=== PATIENT | male | born 1970 | race Caucasian/White ===

== ENCOUNTER 2017-01-01 10:56 | Emergency (ER) | payer MEDICAID ==
[~2017-01-01] VITALS: Ht 167.6 cm; Wt 85.0 kg
[2017-01-01 11:02] VITALS: Ht 167.6 cm; Wt 85.0 kg
[2017-01-01] MEDS ORDERED: IBUPROFEN 600 MG TAB PO ONE (11:30)
--- NOTE | 2017-01-01 12:10 | RADRPT ---
PROCEDURE: XR Right Shoulder CLINICAL INDICATION: Right shoulder pain for 6 months TECHNIQUE: AP internal and external rotation views were submitted along with a Y-view. COMPARISON: None FINDINGS: Osseous structures: appear well mineralized and intact with no fracture or destructive process iden tified. Joint spaces: The glenohumeral joint appears unremarkable. Mild degenerative changes seen about the right AC joint. Soft tissues: A calcification is seen off the right humeral head compatible with calcific tendonitis . IMPRESSION: 1. Calcific tendonitis seen about the right humeral head. 2. Mild degenerative change seen about the right AC joint. Physician Kimberlyn Date Time Electronically viewed and signed by Physician Kimberlyn on 01/01/2017 12:10 /
--- NOTE | 2017-01-01 12:12 | RADRPT ---
PROCEDURE: XR lumbosacral Spine Series CLINICAL INDICATION: Pain TECHNIQUE: 3 standard radiographs were taken of the lumbosacral spine. COMPARISON: None FINDINGS: Alignment: There is mild straightening of the normal lordotic curvature to the lumbar spine without subluxation. Disk spaces: the disk spaces are adequately maintained. Osseous structures: appear intact with no fracture or osseous destruction identified. there is no si gnificant spondylosis. Joint spaces: the facet joints joints appear unremarkable. The sacroiliac joints appear normal. Soft tissues: appear unremarkable. IMPRESSION: 1. Mild straightening of the normal lordotic curvature to the lumbar spine without subluxation. 2. Otherwise, unremarkable lumbosacral spine series. Physician Kimberlyn Date Time Electronically viewed and signed by Physician Kimberlyn on 01/01/2017 12:11 /
[2017-01-01] MEDS ORDERED: NAPR-260 PO (12:44)
--- NOTE | 2017-01-01 12:51 | ERD ---
ER Documentation Chief Complaint Date/Time DATE: 01/01/17 TIME: 12:49 Chief Complaint back pain , rt shoulder pain x 6 months on and off HPI 46-year-old male comes to emergency department with right-sided shoulder pain as well as diffuse lumbar back pain for 6 months on and off. Patient states that he notices the pain mostly in the low back and it is nonradiating and it is worse when he flexes down to tie his shoes or bend forward. It is an achy and sharp. He denies saddle anesthesia loss of bowel bladder function. Patient also complains of right anterior shoulder pain, it is sharp and worse when he moves his arm outward, there is no history of trauma or fevers or chills. ROS All systems reviewed and are negative except as per history of present illness. Medications Home Meds Active Scripts Naproxen* (Naprosyn*) 500 Mg Tablet, 500 MG PO BID Y for PAIN AND/OR INFLAMMATION, #30 TAB Prov:GEORGE GAUTHIER PA-C 01/01/17 Allergies Allergies: Coded Allergies: No Known Allergy (Unverified , 01/01/17) PMhx/Soc Medical and Surgical Hx: pt denies Medical Hx, pt denies Surgical Hx Hx Alcohol Use: No Hx Substance Use: No Hx Tobacco Use: No Smoking Status: Never smoker Physical Exam Vitals Vital Signs Date Time Temp Pulse Resp B/P Pulse Ox O2 Delivery O2 Flow Rate FiO2 01/01/17 11:02 98.0 74 16 128/75 99 Physical Exam = General: Well-developed, well-nourished. The patient appears in no acute distress. HEENT: Head is normocephalic, atraumatic. No scleral icterus. Neck: Supple. Nontender. Lungs: Clear to auscultation. Normal air movement. Heart: Regular rate and rhythm. S1 and S2 are normal. No murmurs, gallops, or rubs. Abdomen: Nondistended. Extremities: Right shoulder has full range of motion with abduction, adduction, no bony deformities, there is mild tenderness over the AC joint. There is no tenting of the skin, no erythema or warmth. There is no swelling to the right upper extremity. Back: There is diffuse paraspinal tenderness in the lumbar spine, no no midline pain, no rashes. He is able to flex and touch his toes. Neurologic: Alert and oriented 3. No focal deficits. Normal speech and gait. Skin: Normal turgor. No rash or lesions. Results 24 hrs Current Medications Medications (Trade) Dose Ordered Sig/Tomy Route PRN Reason Start Time Stop Time Status Last Admin Dose Admin Ibuprofen (Motrin) 600 mg ONCE ONCE PO 01/01/17 11:30 01/01/17 11:31 DC 01/01/17 12:25 PROCEDURE: XR lumbosacral Spine Series CLINICAL INDICATION: Pain TECHNIQUE: 3 standard radiographs were taken of the lumbosacral spine. COMPARISON: None FINDINGS: Alignment: There is mild straightening of the normal lordotic curvature to the lumbar spine without subluxation. Disk spaces: the disk spaces are adequately maintained. Osseous structures: appear intact with no fracture or osseous destruction identified. there is no significant spondylosis. Joint spaces: the facet joints joints appear unremarkable. The sacroiliac joints appear normal. Soft tissues: appear unremarkable. IMPRESSION: 1. Mild straightening of the normal lordotic curvature to the lumbar spine without subluxation. 2. Otherwise, unremarkable lumbosacral spine series. Physician Kimberlyn Date Time Electronically viewed and signed by Physician Kimberlyn on 01/01/2017 12:11 RH/ PROCEDURE: XR Right Shoulder CLINICAL INDICATION: Right shoulder pain for 6 months TECHNIQUE: AP internal and external rotation views were submitted along with a Y-view. COMPARISON: None FINDINGS: Osseous structures: appear well mineralized and intact with no fracture or destructive process identified. Joint spaces: The glenohumeral joint appears unremarkable. Mild degenerative changes seen about the right AC joint. Soft tissues: A calcification is seen off the right humeral head compatible with calcific tendonitis. IMPRESSION: 1. Calcific tendonitis seen about the right humeral head. 2. Mild degenerative change seen about the right AC joint. Physician Kimberlyn Date Time Electronically viewed and signed by Physician Kimberlyn on 01/01/2017 12:10 RH/ Procedures/MDM ED course: He was medicated with ibuprofen 600 mg for pain. MDM: 46-year-old male comes in with lower back pain, right shoulder pain on and off for 6 months. Patient is diffuse paraspinal tenderness, there is some straightening to the lumbar region on the radiographic imaging, no evidence of fracture or subluxation. This is likely a muscular strain. Additionally comes in with right shoulder pain, there is a calcific tendinitis as well as AC joint arthritis. There is evidence of a fracture, dislocation, subluxation, septic arthritis, or infectious origin. Departure Diagnosis: Primary Impression: Calcific tendonitis Additional Impression: Back pain Condition: Good Patient Instructions: Causes of Lumbar (Low Back) Pain, Tendonitis Additional Instructions: Llame al doctor MAANA y gabby salud ALEJANDRA PARA DENTRO DE 1-2 MCLEOD.Dgale a la secretaria que nosotros le instruimos hacer esta alejandra.Avise o llame si chawla condicin se empeora antes de la alejandra. Regresa aqui si peor o no mejor. GEORGE GAUTHIER PA-C January 01, 2017 12:51
[2017-01-01 12:58] VITALS: BP 127/80; PULSE 55; RESP 18; TEMP 97
== END 2017-01-01 12:59 | disposition home or self-care (01) ==
LOC: FTE 10:56
DX: M65.241 Calcific tendinitis, right hand (principal)
CPT/HCPCS: 72100; 73030; Z7502; Z7610

== ENCOUNTER 2018-12-13 07:56 | Emergency (ER) | payer MEDICAID ==
[~2018-12-13] VITALS: Wt 87.0 kg
[~2018-12-13 07:56] MED LIST: NAPR-985 PO
[2018-12-13] MEDS ORDERED: ACETAMINOPHEN 500 MG TAB PO STA (08:39)
[2018-12-13] MEDS ORDERED: IBUPROFEN 600 MG TAB PO ONE (09:00)
[2018-12-13] MEDS ORDERED: ACET325T33 PO (11:01)
[2018-12-13] MEDS ORDERED: IBUP-1542 PO (11:01)
[2018-12-13 11:09] VITALS: BP 128/75; PULSE 87; RESP 19
--- NOTE | 2018-12-13 16:41 | ERD ---
ER Documentation Chief Complaint Chief Complaint FEVER/BODYACHE SINCE LAST NIGHT HPI This is a 48-year-old male patient who presents to the emergency room with complaint of fever, body aches, diarrhea since yesterday. No cough, no chest pain, no vomiting, no abdominal pain, denies melena or hematochezia. No other chronic medical conditions. No known sick contacts. He did eat a shrimp ceviche from street cart yesterday. No recent travel. ROS All systems reviewed and are negative except as per history of present illness. Medications Home Meds Active Scripts Acetaminophen* (Tylenol*) 325 Mg Tablet, 2 TAB PO Q8 PRN for PAIN AND OR ELEVATE D TEMP, #20 TAB Prov:ZACKARY BELTRAN NP 12/13/18 Ibuprofen* (Motrin*) 600 Mg Tab, 600 MG PO Q6, #30 TAB Prov:ZACKARY BELTRAN NP 12/13/18 Naproxen* (Naprosyn*) 500 Mg Tablet, 500 MG PO BID PRN for PAIN AND/OR INFL AMMATION, #30 TAB Prov:GEORGE GAUTHIER PA-C 01/01/17 Allergies Allergies: Coded Allergies: No Known Allergy (Unverified , 01/01/17) PMhx/Soc Medical and Surgical Hx: pt denies Medical Hx, pt denies Surgical Hx Hx Alcohol Use: No Hx Substance Use: No Hx Tobacco Use: No Smoking Status: Never smoker FmHx Family History: No diabetes, No coronary disease, No other Physical Exam Vitals Vital Signs Date Temp Pulse Resp B/P (MAP) Pulse Ox O2 O2 Flow FiO2 Time Delivery Rate 12/13/18 99.3 87 19 128/75 98 Room Air 11:09 (92) 12/13/18 100.3 09:04 12/13/18 100.3 09:04 12/13/18 101.0 87 18 132/74 99 07:59 (93) Physical Exam Const: No acute distress Head: Atraumatic Eyes: Normal Conjunctiva, PERRL ENT: Normal External Ears, TM clear BL, Nose without drainage, pharynx pink, moist, no petechiae, no exudates Neck: Full range of motion. No meningismus. No lymphadenopathy Resp: Clear to auscultation bilaterally, no wheezing, no rales no rhonchi Cardio: Regular rate and rhythm, no murmurs Abd: Soft, non tender, non distended. Normal bowel sounds Skin: No petechiae or rashes, no bruises, skin color normal for ethnicity, dry Back: No midline or flank tenderness, no CVT Ext: No cyanosis, or edema Neur: Awake and alert Psych: Normal Mood and Affect Results 24 hrs Laboratory Tests Test 12/13/18 09:08 Bedside Urine pH (LAB) 6.5 Bedside Urine Protein (LAB) Negative Bedside Urine Glucose (UA) Negative Bedside Urine Ketones (LAB) Negative Bedside Urine Blood Trace-lysed Bedside Urine Nitrite (LAB) Negative Bedside Urine Leukocyte Esterase (L Negative Current Medications Medications Dose Sig/Tomy Start Time Status Last (Trade) Ordered Route PRN Stop Time Admin Dose Reason Admin 1,000 mg ONCE STAT 12/13/18 DC 12/13/18 Acetaminophen PO 08:39 09:04 (Tylenol 12/13/18 08:47 Tab) Ibuprofen 600 mg ONCE ONCE 12/13/18 DC 12/13/18 (Motrin) PO 09:00 09:04 12/13/18 09:01 Procedures/MDM This is a 48-year-old male patient who presents the emergency room with complaint of fever, body aches, diarrhea since yesterday. ED COURSE: The patient was stable throughout ED course. I kept the patient and/or family informed of laboratory and diagnostic imaging results throughout the ED course. DIAGNOSTIC IMAGING: Not indicated PROCEDURES: None. MEDICATIONS GIVEN: ibuprofen and Tylenol Patient tolerated medication well with no adverse reactions. Patient reported improvement in general well-being. This year MDM: At the time of discharge, vital signs stable, no respiratory distress, patient afebrile. Differential diagnosis include but not limited to: Respiratory infection bacterial/viral/fungal. Influenza, pharyngitis, gastroenteritis, asthma, croup, bronchiolitis, allergies, GERD. Less likely foreign body aspiration, pneumonia . Physical examination and clinical presentation consistent most likely with viral syndrome. Stool sample positive for coliform. This may or may not be because of patient's symptoms. No antibiotics or specialized treatment required. During the ED course the patient remained stable. Clinical impression discussed with the patient who agrees with discharge and management of symptoms with antipyretics and increasing hydration. Instructed patient on red flags and signs and symptoms necessitating return to the emergency department. The patient is stable to be treated outpatient and will be discharged home. The patient requires a follow up with the primary care provider in the next 48h. If symptoms persist, worsen or new symptoms develop, then patient should return to the ED immediately. Disclaimer: Inadvertent spelling and grammatical errors are likely due to EHR/dictation software use and do not reflect on the overall quality of patient care. Also, please note that the electronic time recorded on this note does not necessarily reflect the actual time of the patient encounter. DISPOSITION: The patient has been discharge home to follow-up with community physician. Departure Diagnosis: Primary Impression: Influenza-like symptoms Condition: Stable Patient Instructions: Diarrhea, Bacterial (6Y-Adult), Viral Syndrome (Adult) Referrals: [facility] CL[facility] YOU HAVE RECEIVED A MEDICAL SCREENING EXAM AND THE RESULTS INDICATE THAT YOU DO NOT HAVE A CONDITION THAT REQUIRES URGENT TREATMENT IN THE EMERGENCY DEPARTMENT. FURTHER EVALUATION AND TREATMENT OF YOUR CONDITION CAN WAIT UNTIL YOU ARE SEEN IN YOUR DOCTORS OFFICE WITHIN THE NEXT 1-2 DAYS. IT IS YOUR RESPONSIBILITY TO MAKE AN APPOINTMENT FOR FOLOW-UP CARE. IF YOU HAVE A PRIMARY DOCTOR --you should call your primary doctor and schedule an appointment IF YOU DO NOT HAVE A PRIMARY DOCTOR YOU CAN CALL OUR PHYSICIAN REFERRAL HOTLINE AT IF YOU CAN NOT AFFORD TO SEE A PHYSICIAN YOU CAN CHOSE FROM THE FOLLOWING [facility] CLINICS [facility] [address] [facility]. [facility] [address] [facility] [facility] [address] [facility] [address] [facility] [facility] [address] [facility]. [facility]. [address] Additional Instructions: Thank you very much for allowing us to participate in your care. Your health and safety is our top priority at [facility]. Call your primary care doctor TOMORROW for an appointment during the next 2-4 days and bring all the information and medications prescribed. Have prescriptions filled and follow precisely the directions on the label. If the symptoms get worse and your provider is unavailable, return to the Emergency Department immediately. DISCUSSED: RETURN TO THE ER IMMEDIATELY WITH WORSENING OR LOCALIZATION OF ABD PAIN, BLOOD WITH VOMITING, BLOOD IN STOOL ZACKARY BELTRAN NP December 13, 2018 16:41
== END 2018-12-13 11:10 | disposition home or self-care (01) ==
LOC: FTE 07:56
DX: R50.9 Fever, unspecified (principal); R19.7 Diarrhea, unspecified
CPT/HCPCS: 81003; 87045; 87400; Z7502; Z7610; 99283

== ENCOUNTER 2019-01-22 06:09 | Emergency (ER) | payer MEDICAID ==
[~2019-01-22] VITALS: Ht 167.6 cm; Wt 87.0 kg
[~2019-01-22 06:09] MED LIST changes: +ACET325T33 PO; +IBUP-1542 PO
[2019-01-22 06:10] VITALS: Ht 167.6 cm; Wt 87.0 kg
[2019-01-22] MEDS ORDERED: morphine 4 MG/ML VIAL IV STA (06:26)
[2019-01-22] MEDS ORDERED: SOD CHLORIDE 0.9% 1,000 ML IV STA (06:26)
[2019-01-22] MEDS ORDERED: ONDANSETRON 4 MG INJ IV STA (06:26)
--- NOTE | 2019-01-22 06:43 | ERD ---
ER Documentation Chief Complaint Chief Complaint L EAR PAIN X'S 7 DAYS HPI 48-year male presents complaint of intermittent pain to the left side of his ear and surrounding areas for the past 7 days. States that the pain comes and goes and at its maximum feels like a 10 out of 10. Denies any problems hearing. Denies any discharge coming from the ear. Denies any fevers, chills, headaches, lightheadedness, shortness of breath, drooling, trismus, difficulty swallowing. Denies medical problems. Denies allergies. ROS All systems reviewed and are negative except as per history of present illness. Medications Home Meds Active Scripts Acetaminophen* (Tylenol*) 325 Mg Tablet, 2 TAB PO Q8 PRN for PAIN AND OR ELEVATED TEMP, #20 TAB Prov:ZACKARY BELTRAN NP 12/13/18 Ibuprofen* (Motrin*) 600 Mg Tab, 600 MG PO Q6, #30 TAB Prov:ZACKARY BELTRAN NP 12/13/18 Naproxen* (Naprosyn*) 500 Mg Tablet, 500 MG PO BID PRN for PAIN AND/OR INFLAM MATION, #30 TAB Prov:GEORGE GAUTHIER PA-C 01/01/17 Allergies Allergies: Coded Allergies: No Known Allergy (Unverified , 01/01/17) PMhx/Soc Hx Alcohol Use: No Hx Substance Use: No Hx Tobacco Use: No FmHx Family History: No diabetes, No coronary disease, No other Physical Exam Vitals Vital Signs Date Temp Pulse Resp B/P (MAP) Pulse Ox O2 O2 Flow FiO2 Time Delivery Rate 01/22/19 97.7 78 18 146/69 98 06:10 (94) Physical Exam Const: No acute distress Head: Atraumatic. tenderness palpation of the left parotid area with some mild edema noted. Eyes: Normal Conjunctiva ENT: Normal External Ears, Nose and Mouth. Ear canals are occluded with wax bilaterally. No discharge noted from the ear canal. Tonsils are nonedematous erythematous with no exudates bilaterally. Uvula is midline. Neck: Full range of motion. No meningismus. Resp: Clear to auscultation bilaterally Cardio: Regular rate and rhythm, no murmurs Abd: Soft, non tender, non distended. Normal bowel sounds Skin: No petechiae or rashes Back: No midline or flank tenderness Ext: No cyanosis, or edema Neur: Awake and alert Psych: Normal Mood and Affect Result Diagram: 01/22/19 0643 01/22/19 0643 Results 24 hrs Laboratory Tests Test 01/22/19 06:43 White Blood Count 9.3 10^3/ul Red Blood Count 5.24 10^6/ul Hemoglobin 14.5 g/dl Hematocrit 43.8 % Mean Corpuscular Volume 83.6 fl Mean Corpuscular Hemoglobin 27.7 pg Mean Corpuscular Hemoglobin Concent 33.1 g/dl Red Cell Distribution Width 13.8 % Platelet Count 274 10^3/UL Mean Platelet Volume 9.0 fl Immature Granulocytes % 0.400 % Neutrophils % 71.3 % Lymphocytes % 20.1 % Monocytes % 7.3 % Eosinophils % 0.5 % Basophils % 0.4 % Nucleated Red Blood Cells % 0.0 /100WBC Immature Granulocytes # 0.040 10^3/ul Neutrophils # 6.6 10^3/ul Lymphocytes # 1.9 10^3/ul Monocytes # 0.7 10^3/ul Eosinophils # 0.1 10^3/ul Basophils # 0.0 10^3/ul Nucleated Red Blood Cells # 0.0 10^3/ul Sodium Level 142 mmol/L Potassium Level 4.0 mmol/L Chloride Level 106 mmol/L Carbon Dioxide Level 26 mmol/L Anion Gap 10 Blood Urea Nitrogen 16 mg/dl Creatinine 0.91 mg/dl Est Glomerular Filtrat Rate mL/min > 60 mL/min Glucose Level 118 mg/dl Calcium Level 9.2 mg/dl Total Bilirubin 0.8 mg/dl Direct Bilirubin 0.00 mg/dl Indirect Bilirubin 0.8 mg/dl Aspartate Amino Transf (AST/SGOT) 29 IU/L Alanine Aminotransferase (ALT/SGPT) 33 IU/L Alkaline Phosphatase 121 IU/L Total Protein 8.0 g/dl Albumin 4.2 g/dl Globulin 3.80 g/dl Albumin/Globulin Ratio 1.10 Current Medications Medications Dose Sig/Tomy Start Time Status Last (Trade) Ordered Route PRN Stop Time Admin Dose Reason Admin Sodium 1,000 ml @ Q1H STAT 01/22/19 DC 01/22/19 Chloride 1,000 mls/hr IV 06:26 06:43 01/22/19 07:25 Morphine 3 mg ONCE STAT 01/22/19 DC 01/22/19 Sulfate IV 06:26 06:41 (morphine) 01/22/19 06:31 Ondansetron 2 mg ONCE STAT 01/22/19 DC 01/22/19 HCl (Zofran IV 06: 06:41 Inj) 01/22/19 06:31 IV Flush 10 ml STK-MED 01/22/19 DC 01/22/19 (NS 10 ml) ONCE .ROUTE 07:31 08:06 01/22/19 07:32 Sodium 100 ml @ ud STK-MED 01/22/19 DC 01/22/19 Chloride ONCE .ROUTE 07:31 08:06 01/22/19 07:32 Iohexol 150 ml STK-MED 01/22/19 DC 01/22/19 (Omnipaque ONCE .ROUTE 07:31 08:07 300mg/ ml) 01/22/19 07:32 Procedures/MDM DIAGNOSTIC IMAGING REPORT Patient: TABITHA JC : 1970 Age: 48 Sex: M MR #: [id number] DOS: 01/22/19 0633 Ordering MD: IRMA ABREU Location: [facility] Room/Bed: PROCEDURE: CT FACE AND SINUSES WITH CONTRAST: CLINICAL INDICATION: Left parotid pain. Evaluate for abscess. TECHNIQUE: CT of the paranasal sinuses was performed following the IV administration of 80 mL Omnipaque-300 . Coronal and sagittal reformatted images were obtained from the axial source images. Images were reviewed on a high-resolution PACS workstation. 3-D volume rendering was not performed. DICOM images are available. Dose information: Based on a 16 cm phantom, the estimated radiation dose (CTDIvol mGy) for each series in this exam is 53.57. The estimated cumulative dose (DLP mGy-cm) is 1074.85. One or more of the following dose reduction techniques were used: - Automated exposure control. - Adjustment of the mA and/or kV according to patient size. - Use of iterative reconstruction technique. COMPARISON: None available. FINDINGS: BONES: Normal. ORBITAL SOFT TISSUES: Normal. SALIVARY GLANDS: No calculus, inflammatory process, or ductal dilatation. There is a 6 mm left intraparotid lymph node. MASTOID AIR CELLS: Incompletely visualized. SOFT TISSUES: No evidence of an abscess or drainable fluid collection. VISUALIZED BRAIN: No significant abnormality. IMAGED VASCULATURE: Patent. PARANASAL SINUSES: Moderate opacification of the bilateral maxillary and ethmoid sinuses. Mild opacification of the right maxillary, left frontal, and right sphenoid sinuses. Opacified left frontoethmoidal recess. LYMPH NODES: Shoddy sub centimeter cervical lymph nodes likely reactive. IMPRESSION: 1. No evidence of an abscess or drainable fluid collection. 2. Diffuse sub centimeter cervical lymph nodes likely reactive. 3. Moderate opacification of the bilateral maxillary and ethmoid sinuses. Opa cified left frontoethmoidal recess. Mild opacification of the right maxillary, left frontal right sphenoid sinuses RPTAT: HRSR Physician Selma Date Time Electronically viewed and signed by Physician Selma on 01/22/2019 08:47 RR/ CC: IRMA ABREU [phone] MDM: Given the tenderness to palpation in the parotid area CT with contrast was used to rule out acute space infection. Results within normal limits. Patient was prescribed Augmentin to cover for possible bacterial etiology of symptoms. At this time I have low suspicion for abscess, Mykel's angina, retropharyngeal abscess, epiglottitis, mastoiditis, or any other emergent condition at this time, patient is stable for discharge and outpatient management. I have instructed the patient to follow-up with his/her primary care physician in 1-2 days. I have discussed with the patient the possibility of needing to see a specialist for further workup and imaging studies if symptoms persist. I have instructed the patient to promptly return to the ER for any new or worsening symptoms including but not limited to increased pain, fever, nausea, vomiting, weakness or LOC. The patient and/or family expressed understanding of and agreement with this plan. All questions were answered. Home care instructions were provided. [Communication with patient both during the exam and instructions for discharge were performed with using a will call clerk . Patient gave verbal confirmation to the practitioner, through the will call clerk, that they understood everythign that was being said to them.] DISCLAIMER: Inadvertent spelling and grammatical errors are likely due to EHR/dictation software use and do not reflect on the overall quality of patient care. Also, please note that the electronic time recorded on this note does not necessarily reflect the actual time of the patient encounter. . Departure Diagnosis: Primary Impression: Parotitis Condition: Stable IRMA ABREU Jan 22, 2019 06:43
[2019-01-22] MEDS ORDERED: SOD CHLORIDE 0.9% 100 ML ONE (07:31)
[2019-01-22] MEDS ORDERED: IOHEXOL 300MG/ML 150 ML BTL ONE (07:31)
[2019-01-22] MEDS ORDERED: HYDR-4011 PO (09:45)
[2019-01-22] MEDS ORDERED: AMOX1TAB10 PO (09:45)
[2019-01-22] MEDS ORDERED: IBUP-1542 PO (09:45)
[2019-01-22 09:58] VITALS: BP 138/90; PULSE 64; RESP 18
== END 2019-01-22 10:00 | disposition home or self-care (01) ==
LOC: FTE 06:09
DX: K11.20 Sialoadenitis, unspecified (principal)
CPT/HCPCS: 70486; 80053; 85025; 96361; 96374; 96375; J2270; J2405; J7030; Q9967; Z7502; Z7610